=== PATIENT | female | born 1975 | race Native Hawaiian/Other Pacific Islander ===

== ENCOUNTER 2017-04-28 14:59 | Observation (INO) | payer BC ==
[~2017-04-28] VITALS: Ht 165.1 cm; Wt 78.2 kg
[~2017-04-28 14:59] MED LIST: ADIPEX PO; HYDR25TA60 PO
[2017-04-28 17:24] LABS: PLATELET COUNT 397 K/uL (152-353)
[2017-04-28 17:36] LABS: POTASSIUM 3.6 mmol/L (3.6-5.2)
[2017-04-28 17:39] VITALS: BP 134/61; TEMP 98.5; Ht 165.1 cm; Wt 78.2 kg
[2017-04-28] MEDS ORDERED: BENAZEPRIL HCL/1 TA1 PO (18:45)
[2017-04-28 20:00] VITALS: BP 149/84; TEMP 98.4
[2017-04-29] VITALS: BP 147/67; TEMP 97.6
[2017-04-29 04:00] VITALS: BP 131/61; TEMP 98.1
[2017-04-29 06:24] LABS: PLATELET COUNT 389 K/uL (152-353)
[2017-04-29 06:29] LABS: POTASSIUM 4.2 mmol/L (3.6-5.2)
[2017-04-29 08:12] VITALS: BP 121/63; TEMP 98.2
[2017-04-29] MEDS ORDERED: PROAIR HFA IN (10:10)
[2017-04-29] MEDS ORDERED: MEDROL DOSEPAK4 MG OR (10:10)
[2017-04-29] MEDS ORDERED: KETO10TA34 PO (10:10)
[2017-04-29] MEDS ORDERED: PHENELX32 PO (10:10)
--- NOTE | 2017-04-29 10:45 | NUR ---
IV D/C'D. SCRIPT GIVEN. PT INSTRUCTED THAT FUTHER PRESCRIPTIONS CALLED IN TO PHARMACY. PT TO MAKE FU WITH [facility]. PT HAS NO FUTHER QUESTIONS. PT WHEELED OUT AT THIS TIME PER [place] [facility]. NO PROBLEMS NOTED.
== END 2017-04-29 10:45 | disposition home or self-care (01) ==
LOC: MED/SURG 14:59
PROVIDERS: ADMIT Internal Medicine
DX: R07.89 Other chest pain (principal); R06.09 Other forms of dyspnea; R06.02 Shortness of breath; M94.0 Chondrocostal junction syndrome [Tietze]; I10 Essential (primary) hypertension; R11.0 Nausea
CPT/HCPCS: 36415; 36600; 80053; 81000; 81025; 82550; 82805; 83615; 84484; 85027; 85379; 87040; 93005; 94640; 94664; 94760; 96374; 99220; G0378; G0379; J2930